=== PATIENT | female | born 1955 | race Caucasian/White ===

== ENCOUNTER 2022-10-22 09:11 | Day surgery (SDC) | payer MEDICARE ==
[2022-10-22] MEDS ORDERED: BUPIVACAINE 0.5% VIAL IJ ONE (09:12)
[2022-10-22] MEDS ORDERED: Depo-Medrol 40 MG/ML IM ONE (09:12)
[2022-10-22] MEDS ORDERED: PROVENTIL 2.5 MG/3 ML NEB IH ONE ×2 (10:02→10:04)
[2022-10-22] MEDS ORDERED: Versed 2 MG/2 ML Injection ONE ×2 (10:07→12:14)
[2022-10-22] MEDS ORDERED: Lasix 20 MG/2 ML ONE (10:07)
[2022-10-22 10:18] VITALS: PULSE 66; O2SAT 91
[2022-10-22] MEDS ORDERED: DIPRIVAN 200 MG/20 ML IV ONE (12:06)
--- NOTE | 2022-10-22 14:31 | XRAY ---
Indication: Bilateral SI joint injection. Intraoperative fluoroscopy provided for 21 seconds. 4 digital spot images submitted for interpretation demonstrates posterior needle tip projecting over the left and right SI joint. Correlate with intraoperative findings/report.
[2022-10-22] MEDS ORDERED: Lactated Ringers 1,000 ML IV ONE (14:32)
--- NOTE | 2022-10-22 15:14 | XRAY ---
21 seconds of fluoroscopy was used in surgery for a bilateral sacroiliac joint injection.
== END 2022-10-22 12:55 | disposition home or self-care (01) ==
LOC: SDC-PAIN 09:11
PROVIDERS: ATTEND Psychiatry & Neurology Pain Medicine
DX: M46.1 Sacroiliitis, not elsewhere classified (principal); E10.9 Type 1 diabetes mellitus without complications; Z79.899 Other long term (current) drug therapy
CPT/HCPCS: 01992; 27096; 72202; 77002; 82947; 94640; G0260; J1030; J1940; J2250; J2704; J7609; A9270-GY